=== PATIENT | female | born 1965 | race Caucasian/White ===

== ENCOUNTER 2019-12-26 11:59 | Emergency (ER) | payer BC, OTHER ==
[2019-12-26] MEDS ORDERED: SODIUM CHLORIDE 0.9% 500 ML 500 ML IV STA (12:16)
--- NOTE | 2019-12-26 12:25 | ED ---
General Adult HPI - General Chief complaint: Recheck/Abnormal Lab/Rx Stated complaint: lt arm weakness Time Seen by Provider: 12/26/19 12:10 Source: patient, RN notes reviewed, old records reviewed Mode of arrival: wheelchair Limitations: no limitations - History of Present Illness Initial comments: 54-year-old female history of hypertension, current smoker presenting for evaluation of left arm heaviness and weakness. Symptoms began at 11:30 AM. She presents for evaluation at approximately 12:15. Symptoms have improved over this 45 minutes. She denies headache. Denies chest pain. She states she did not take her Toprol medication this morning. Patient denying fever, cough, abdominal pain nausea vomiting. No previous CVA or TIA. She did report some dizziness at the onset. - Related Data Home Medications Medication Instructions Recorded Confirmed Albuterol Inhaler (Mhu) [Ventolin 1 - 2 puff INHALATION Q6HR PRN 03/28/16 03/29/16 Hfa Inhaler] FLUoxetine HCL [PROzac] 60 mg PO DAILY 03/28/16 03/29/16 Levothyroxine Sodium [Synthroid] 50 mcg PO DAILY 03/28/16 03/29/16 Allergies Allergy/AdvReac Type Severity Reaction Status Date / Time adhesive tape Allergy Rash/Hives Verified 12/26/19 12:05 Review of Systems ROS Statement: Those systems with pertinent positive or pertinent negative responses have been documented in the HPI. ROS Other: All systems not noted in ROS Statement are negative. 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 History of Any Multi-Drug Resistant Organisms: None Reported Past Surgical History: Appendectomy, Tonsillectomy Additional Past Surgical History / Comment(s): TONSILAR BIOPSY Past Anesthesia/Blood Transfusion Reactions: No Reported Reaction Past Psychological History: No Psychological Hx Reported Smoking Status: Current every day smoker Past Alcohol Use History: Daily Past Drug Use History: None Reported - Past Family History Mother Family Medical History: Deep Vein Thrombosis (DVT) Father Family Medical History: Cancer Additional Family Medical History / Comment(s): LUNG CANCER General Exam Limitations: no limitations General appearance: alert, in no apparent distress Head exam: Present: atraumatic, normocephalic Eye exam: Present: normal appearance, PERRL, EOMI ENT exam: Present: normal exam Neck exam: Present: normal inspection. Absent: tenderness, meningismus Respiratory exam: Present: normal lung sounds bilaterally. Absent: respiratory distress, wheezes Cardiovascular Exam: Present: regular rate, normal rhythm GI/Abdominal exam: Present: soft. Absent: distended, tenderness Extremities exam: Present: normal inspection, normal capillary refill. Absent: pedal edema, calf tenderness Neurological exam: Present: alert, oriented X3, CN II-XII intact, other (NIH of 0, equal it security analyst strength bilaterally ). Absent: motor sensory deficit Psychiatric exam: Present: normal affect, normal mood Skin exam: Present: warm, dry, intact Course Vital Signs 12/26/19 12/26/19 12/26/19 12:05 13:00 13:15 Temperature 98.2 F Pulse Rate 82 75 77 Respiratory 18 15 16 Rate Blood Pressure 238/108 192/97 177/98 O2 Sat by Pulse 99 100 99 Oximetry 12/26/19 13:45 Temperature 98 F Pulse Rate 80 Respiratory 20 Rate Blood Pressure 177/86 O2 Sat by Pulse 98 Oximetry - Reevaluation(s) Reevaluation #1: 12/26/19 13:33 Reevaluation, NIH of 0, blood pressure improved to 177/98 Reevaluation #2: 12/26/19 14:03 CT angiography findings discussed with Dr. Sanz, recommends 300 of Plavix, will evaluate the patient at [place] upon arrival. EKG Findings - EKG Comments: EKG Findings:: EKG: Normal sinus rhythm, incomplete right bundle-branch block, rate of 78, NJ interval 172, QRS duration 100, QTC 456, no ST segment elevation Medical Decision Making - Medical Decision Making 54-year-old female presenting with hypertension, left arm weakness. Symptoms had improved at the time of arrival, onset was at 11:30 this morning. She has an NIH of [address] was performed which is negative for intracranial hemorrhage, CT angiography performed these results are pending at the time of this dictation. Patient has normal CBC, she has hyponatremia with a sodium of 129. EKG is sinus rhythm. I discussed case with Dr. Sanz and Dr. Mehta at [facility]. Patient will be transferred for neurology evaluation. - Lab Data Result diagrams: 12/26/19 12:56 12/26/19 12:27 Lab Results 08/12/26/19 12/26/19 Range/Units 12:27 12:27 12:27 WBC (3.8-10.6) k/uL RBC (3.80-5.40) m/uL Hgb (11.4-16.0) gm/dL Hct (34.0-46.0) % MCV (80.0-100.0) fL MCH (25.0-35.0) pg MCHC (31.0-37.0) g/dL RDW (11.5-15.5) % Plt Count (150-450) k/uL Neutrophils % % Lymphocytes % % Monocytes % % Eosinophils % % Basophils % % Neutrophils # (1.3-7.7) k/uL Lymphocytes # (1.0-4.8) k/uL Monocytes # (0-1.0) k/uL Eosinophils # (0-0.7) k/uL Basophils # (0-0.2) k/uL PT 10.2 (9.0-12.0) sec INR 1.0 (<1.2) APTT 21.3 L (22.0-30.0) sec Sodium 129 L (137-145) mmol/L Potassium 4.8 (3.5-5.1) mmol/L Chloride 93 L (98-107) mmol/L Carbon Dioxide 28 (22-30) mmol/L Anion Gap 8 mmol/L BUN 11 (7-17) mg/dL Creatinine 0.62 (0.52-1.04) mg/dL Est GFR (CKD-EPI)AfAm >90 (>60 ml/min/1.73 sqM) Est GFR (CKD-EPI)NonAf >90 (>60 ml/min/1.73 sqM) Glucose 166 H (74-99) mg/dL Calcium 10.3 H (8.4-10.2) mg/dL Total Bilirubin 0.6 (0.2-1.3) mg/dL AST 39 H (14-36) U/L ALT 26 (4-34) U/L Alkaline Phosphatase 62 (38-126) U/L Troponin I <0.012 (0.000-0.034) ng/mL Total Protein 8.4 H (6.3-8.2) g/dL Albumin 5.5 H (3.5-5.0) g/dL 12/26/19 Range/Units 12:56 WBC 8.4 (3.8-10.6) k/uL RBC 4.40 (3.80-5.40) m/uL Hgb 13.7 (11.4-16.0) gm/dL Hct 41.2 (34.0-46.0) % MCV 93.5 (80.0-100.0) fL MCH 31.1 (25.0-35.0) pg MCHC 33.3 (31.0-37.0) g/dL RDW 12.9 (11.5-15.5) % Plt Count 291 (150-450) k/uL Neutrophils % 85 % Lymphocytes % 6 % Monocytes % 6 % Eosinophils % 2 % Basophils % 0 % Neutrophils # 7.1 (1.3-7.7) k/uL Lymphocytes # 0.5 L (1.0-4.8) k/uL Monocytes # 0.5 (0-1.0) k/uL Eosinophils # 0.1 (0-0.7) k/uL Basophils # 0.0 (0-0.2) k/uL PT (9.0-12.0) sec INR (<1.2) APTT (22.0-30.0) sec Sodium (137-145) mmol/L Potassium (3.5-5.1) mmol/L Chloride (98-107) mmol/L Carbon Dioxide (22-30) mmol/L Anion Gap mmol/L BUN (7-17) mg/dL Creatinine (0.52-1.04) mg/dL Est GFR (CKD-EPI)AfAm (>60 ml/min/1.73 sqM) Est GFR (CKD-EPI)NonAf (>60 ml/min/1.73 sqM) Glucose (74-99) mg/dL Calcium (8.4-10.2) mg/dL Total Bilirubin (0.2-1.3) mg/dL AST (14-36) U/L ALT (4-34) U/L Alkaline Phosphatase (38-126) U/L Troponin I (0.000-0.034) ng/mL Total Protein (6.3-8.2) g/dL Albumin (3.5-5.0) g/dL Critical Care Time Critical Care Time: Yes Total Critical Care Time: 35 Disposition Clinical Impression: CVA (cerebral vascular accident) Disposition: OTHER INSTITUTION NOT DEFINED Condition: Stable Is patient prescribed a controlled substance at d/c from ED?: No Referrals: Chuck Jacinto MD [Primary Care Provider] - 1-2 days Time of Disposition: 13:35 - Out of Hospital Transfer - Req. Specs Out of Hospital Transfer - Requested Specifics: Other Emergency Center ([facility])
[2019-12-26 12:53] LABS: ALT 26 U/L (4-34); AST 39 U/L (14-36); African American GFR (CKD) >90 (>60 ml/min/1.73 sqM); Albumin 5.5 g/dL (3.5-5.0); Alkaline Phosphatase 62 U/L (38-126); Anion Gap 8 mmol/L; Blood Urea Nitrogen 11 mg/dL (7-17); Calcium 10.3 mg/dL (8.4-10.2); Carbon Dioxide 28 mmol/L (22-30); Chloride 93 mmol/L (98-107); Glucose 166 mg/dL (74-99); Non-African American GFR(CKD) >90 (>60 ml/min/1.73 sqM); Potassium 4.8 mmol/L (3.5-5.1); Sodium 129 mmol/L (137-145); Total Bilirubin 0.6 mg/dL (0.2-1.3); Total Protein 8.4 g/dL (6.3-8.2)
[2019-12-26 13:00] LABS: Prothrombin Time 10.2 sec (9.0-12.0)
[2019-12-26 13:02] LABS: Partial Thromboplastin Time 21.3 sec (22.0-30.0)
[2019-12-26 13:03] LABS: Basophils % (A) 0 %; Eosinophils # (A) 0.1 k/uL (0-0.7); Eosinophils % (A) 2 %; HCT 41.2 % (34.0-46.0); HGB 13.7 gm/dL (11.4-16.0); Lymphocytes # (A) 0.5 k/uL (1.0-4.8); Lymphocytes % (A) 6 %; MCH 31.1 pg (25.0-35.0); MCHC 33.3 g/dL (31.0-37.0); MCV 93.5 fL (80.0-100.0); Mean Platelet Volume 6.9; Monocytes # (A) 0.5 k/uL (0-1.0); Monocytes % (A) 6 %; Neutrophils # (A) 7.1 k/uL (1.3-7.7); Neutrophils % (A) 85 %; Platelet Count 291 k/uL (150-450); RDW 12.9 % (11.5-15.5); WBC 8.4 k/uL (3.8-10.6)
--- NOTE | 2019-12-26 13:03 | CT ---
EXAMINATION TYPE: CT brain wo con for TPA DATE OF EXAM: 12/26/2019 COMPARISON: None HISTORY: 54-year-old female utilizing deficits, acute stroke suspected, CODE STROKE TECHNIQUE: Examination was done in axial plane without intravenous contrast. Coronal and sagittal r econstructions performed. CT DLP: 1089 mGycm Automated exposure control for dose reduction was used. FINDINGS: There is no evidence of acute intracranial hemorrhage, acute ischemic changes, mass, mass-effect, or extra-axial fluid collection. There is no effacement of cerebral sulci or basal subarachnoid cister ns. There is no hydrocephalus. There is no midline shift. Medeiros-white matter distinction is preserv ed. Paranasal sinuses and mastoid air cells are well pneumatized. Orbits and globes are intact. IMPRESSION: No acute intracranial abnormality seen. If symptoms persist, follow-up MRI.
[2019-12-26] MEDS ORDERED: ASPIRIN 325 MG TAB PO STA (13:28)
[2019-12-26] MEDS ORDERED: SODIUM CHLORIDE 0.9% 1,000 ML IV SCH (13:30)
--- NOTE | 2019-12-26 13:55 | CT ---
EXAMINATION TYPE: CT angio head neck DATE OF EXAM: 12/26/2019 COMPARISON: CT brain same day HISTORY: 54 year-old female code stroke, neurologic deficits, left arm weakness. TECHNIQUE: Contiguous axial scanning of the head and neck performed with IV Contrast, patient injecte d with 65 ml mL of Isovue 370. 3-D reconstructions generated on a dedicated workstation. Coronal/sagi ttal MIP reconstructions performed. CT DLP: 375.7 mGycm Automated exposure control for dose reduction was used. FINDINGS: NECK: Mild atherosclerotic arch calcifications. Conventional arch vessel branching anatomy. Both vertebral arteries appear codominant and patent with scattered mild atherosclerotic calcificatio ns along the V2 segment. There is a moderate focal atherosclerotic narrowing at the origin of the right common carotid artery with a stenosis estimated at 60%, reference axial image 20. Moderate atherosclerotic plaque and calcifications along the mid common carotid artery along with a s ubtle flap on axial image 44 and 45 that could represent focal plaque ulceration or a nonobstructing dissection flap. Moderate focal stenosis at the origin of the right internal carotid artery. Just above the level of t he carotid bulb, there is a severe, near total occlusion of the proximal to mid internal carotid joya ry. The upper internal carotid artery is asymmetrically smaller caliber to the left. Scattered mild atherosclerotic calcification throughout the left common carotid artery. Moderate atherosclerotic calcifications within the left carotid bulb with mild, less than 30 % narrow ing at the proximal left ICA. HEAD: Vertebral arteries are codominant and patent. Basilar artery shows mild narrowing along its distal po rtion but remains patent. There are hypoplastic P1 segments of the posterior cerebral arteries with p ersistent origins from the internal carotid arteries. Relatively small caliber to the right internal carotid artery in keeping with the severe stenosis of the right internal carotid artery in the neck. The supraclinoid right internal carotid artery becomes diminutive. Hypoplastic A1 segment right anterior cerebral artery. Otherwise, there is appropriate enhancement of the MCA and LASHELL branches. No aneurysmal change is seen. IMPRESSION: NECK: 1. Severe, subtotal stenosis of the proximal to mid right internal carotid artery above the carotid b ulb level. 2. Additional moderate (50-70%) focal stenosis at the origin of the right internal carotid artery. 3. Moderate, approximately 60% stenosis at the origin of the right common carotid artery. Also, moder ate atherosclerotic change along the mid right common carotid artery with a subtle flap on axial imag es 44 and 45 that could represent some focal ulcerated plaque or a dissection flap. 4. Mild, less than 30% proximal left ICA narrowing. HEAD: 5. Asymmetrically smaller right internal carotid artery in keeping with the severe stenosis lower trudy n in the neck. However, the supraclinoid portion of the right ICA becomes diminutive. This could be s econdary to poor proximal flow or a superimposed severe focal stenosis. 6. Mild narrowing distal basilar artery and persistent origins to the bilateral posterior cereb ral arteries.
[2019-12-26 13:56] VITALS: BP 177/86; PULSE 80; RESP 20; TEMP 98
[2019-12-26] MEDS ORDERED: CLOPIDOGREL 75 MG TAB PO STA (14:02)
== END 2019-12-26 14:26 | disposition other institution (70) ==
LOC: EC 11:59
DX: I63.9 Cerebral infarction, unspecified (principal); G83.24 Monoplegia of upper limb affecting left nondominant side; I10 Essential (primary) hypertension; J45.909 Unspecified asthma, uncomplicated; E07.9 Disorder of thyroid, unspecified; E87.1 Hypo-osmolality and hyponatremia; R29.700 NIHSS score 0; F17.200 Nicotine dependence, unspecified, uncomplicated; Z79.899 Other long term (current) drug therapy; Z79.890 Hormone replacement therapy; Z91.048 Other nonmedicinal substance allergy status; Z85.818 Personal history of malignant neoplasm of other sites of lip, oral cavity, and pharynx
CPT/HCPCS: 36415; 93005; 80053; 84484; 85025; 85610; 85730; 70496; 70450; 70498; 99291; 96360; 96361; Q9967

== ENCOUNTER 2022-03-16 07:19 | Day surgery (SDC) | payer BC ==
[2022-03-14 16:05] VITALS: BMI 22.8
[~2022-03-16 07:19] MED LIST: LACTATED RINGERS 1,000 ML IV SCH
[2022-03-16 08:04] VITALS: TEMP 97.2
[2022-03-16] MEDS ORDERED: LIDOCAINE 1% (10MG/ML) FOR IV START INTRADERMA ONE (08:11)
[2022-03-16 08:25] LABS: Basophils % (A) 0 %; Eosinophils # (A) 0.1 k/uL (0-0.7); Eosinophils % (A) 1 %; HCT 30.3 % (34.0-46.0); HGB 9.7 gm/dL (11.4-16.0); Hypochromasia Marked; Lymphocytes # (A) 0.6 k/uL (1.0-4.8); Lymphocytes % (A) 7 %; MCH 29.5 pg (25.0-35.0); MCHC 32.1 g/dL (31.0-37.0); MCV 91.9 fL (80.0-100.0); Mean Platelet Volume 7.8; Monocytes # (A) 0.5 k/uL (0-1.0); Monocytes % (A) 6 %; Neutrophils # (A) 6.5 k/uL (1.3-7.7); Neutrophils % (A) 83 %; Platelet Count 394 k/uL (150-450); Poikilocytosis Slight; RBC 3.29 m/uL (3.80-5.40); RDW 15.7 % (11.5-15.5); WBC 7.9 k/uL (3.8-10.6)
[2022-03-16] MEDS ORDERED: LIDOCAINE 2% INJ 20 MG/ML (2 ML VIAL) ONE (08:36)
[2022-03-16] MEDS ORDERED: PROPOFOL 10 MG/ML 20 ML VIAL IV ONE (08:36)
--- NOTE | 2022-03-16 08:58 | P.PCN ---
Date of Procedure: 03/16/22 Procedure(s) Performed: Brief history: Patient is a pleasant 56-year-old white female scheduled for an elective upper endoscopy as well as colonoscopy as a part of evaluation of recurrent iron deficiency anemia. He said was noted to have a hemoglobin of 6.2 g/dL requiring 2 units of PRBC transfusion. She has history of A. fib and and currently on Eliquis which is on hold for 3 days. Her last EGD and colonoscopy in 2016 that showed small colon polyps and duodenal angiectasia. She had iron deficiency anemia 2 years ago and recalls having an upper endoscopy and possible colonoscopy at [facility] atr that time which were unremarkable. Procedure performed: Esophagogastroduodenoscopy with biopsy Colonoscopy Preoperative diagnosis: Symptomatic iron deficiency anemia Anesthesia: [facility] Procedure: After informed consent was obtained from the patient was brought into the endoscopy unit and IV sedation was administered by anesthesia under continuous monitoring. Initially upper endoscopy was done. The Olympus GF 160 video endoscope was inserted inserted into the mouth and esophagus intubated without any difficulty and was gradually advanced into the stomach and duodenum and carefully examined. The bulb and second part of the duodenum appeared normal. Biopsies were done from the duodenum to rule out celiac disease. The scope was then withdrawn into the stomach adequately insufflated with air and upon careful examination the antrum had linear areas of erythema which was biopsied. Mucosa of the body, cardia and fundus appeared normal. The scope was then withdrawn into the esophagus. The GE junction was located at 40 cm to the incisors. It appeared regular with no erythema erosions or ulcerations. Rest of the esophagus appeared normal. Patient tolerated the procedure well. At this time the patient continued to remain sedation. Initial digital rectal examination was normal. Olympus CF 160 video colonoscope was then inserted into the rectum and gradually advanced to the cecum without any difficulty. Careful examination was performed as the scope was gradually being withdrawn. The prep was excellent. The cecum, ascending colon, transverse colon, descending colon, sigmoid colon and rectum appeared normal. Retroflexion was performed in the rectum and no lesions were noted. Patient tolerated the procedure well. Impression: 1. Upper endoscopy revealed mild antral gastritis but no evidence of esophagitis, peptic ulcer disease or angiectasia 2. Colonoscopy was within normal limits with no evidence of colitis or colorectal neoplasia Recommendations: Findings of this examination were discussed with the patient as well as her family. he was advised to follow with the biopsy results. Continue with iron supplements twice daily and monitor CBC on a periodic basis. She will be scheduled for small bowel capsule endoscopy to evaluate further small bowel for any GI blood loss. She was advised to restart Eliquis today.
[2022-03-16 09:32] VITALS: BP 170/84; PULSE 72; RESP 16
[2022-03-16 17:55] LABS: % Iron Saturation 3.19 (12.00-45.00)
== END 2022-03-16 09:53 | disposition home or self-care (01) ==
LOC: ORWHC2ENDO 07:19
PROVIDERS: ATTEND Internal Medicine Gastroenterology
DX: D50.9 Iron deficiency anemia, unspecified (principal); K29.50 Unspecified chronic gastritis without bleeding; Z79.01 Long term (current) use of anticoagulants; I48.91 Unspecified atrial fibrillation; Z87.19 Personal history of other diseases of the digestive system; Z86.010 Personal history of colon polyps
CPT/HCPCS: 88305; 83540; 83550; 85025; 45378; 43239; J2704; J2001

== ENCOUNTER → 2022-09-17 | Day surgery (SDC) | payer BC ==
[2022-09-13 15:56] VITALS: BMI 25.0
[~2022-09-17] MED LIST changes: -LACTATED RINGERS 1,000 ML IV SCH; +SIMETHICONE 40 MG/0.6 ML DROPS 2,000 MG/30 ML BOTTLE PO ONE
== END ==
LOC: ORWHC2ENDO 06:18
PROVIDERS: ATTEND Internal Medicine Gastroenterology
DX: D50.9 Iron deficiency anemia, unspecified (principal); K29.70 Gastritis, unspecified, without bleeding; I48.91 Unspecified atrial fibrillation; Z98.890 Other specified postprocedural states; Z79.01 Long term (current) use of anticoagulants; Z79.899 Other long term (current) drug therapy
CPT/HCPCS: 91110